=== PATIENT | male | born 1970 | race African-American/Black ===

== ENCOUNTER 2018-12-21 11:47 | Emergency (ER) | payer BC ==
--- NOTE | 2018-12-21 13:24 | ER ---
Nurse's Notes [facility] Name: Ric Webb Age: 48 yrs Sex: Male : 1970 Arrival Date: 12/21/2018 Time: 11:49 Bed 8 Private MD: Diagnosis: Influenza due to certain identified influenza viruses Presentation: 12/21 12:24 Presenting complaint: Patient states: cough, congestion, chest cold, chest pains adn body aches, couging up mucous, dark yellow. Transition of care: patient was not received from another setting of care. Onset of symptoms was December 17, 2018. Risk Assessment: Do you want to hurt yourself or someone else? Patient reports no desire to harm self or others. Initial Sepsis Screen: Does the patient meet any 2 criteria? No. Patient's initial sepsis screen is negative. Does the patient have a suspected source of infection? No. Patient's initial sepsis screen is negative. Care prior to arrival: None. 12:24 Method Of Arrival: Ambulatory 12:24 Acuity: LYNN 3 Triage Assessment: 12:25 Headache History: The patient has had previous headaches and this one is similar to previous episodes. General: Appears Behavior is. Pain: Pain currently is 4 out of 10 on a pain scale. Pain began gradually, Also complains of no other associated symptoms. Neuro: No deficits noted. Historical: - Allergies: 12:25 No Known Allergies; - PMHx: 12:25 None; - PSHx: 12:25 R shoulder; - Immunization history:: Adult Immunizations up to date, Flu vaccine is not up to date. - Social history:: Smoking status: Patient/guardian denies using tobacco, Patient/guardian denies using alcohol, street drugs. - Ebola Screening: : Patient negative for fever greater than or equal to 101.5 degrees Fahrenheit, and additional compatible Ebola Virus Disease symptoms Patient denies exposure to infectious person Patient denies travel to an Ebola-affected area in the 21 days before illness onset No symptoms or risks identified at this time. Screenin:00 Abuse screen: Denies threats or abuse. Denies injuries from another. Nutritional aj1 screening: No deficits noted. Tuberculosis screening: No symptoms or risk factors identified. 13:54 Fall Risk None identified. aj1 Assessment: 13:00 General: Appears in no apparent distress. comfortable, Behavior is calm, cooperative, aj1 appropriate for age. Pain: Complains of pain in face. Neuro: Level of Consciousness is awake, alert, obeys commands, Oriented to person, place, time, situation, Reports headache. Cardiovascular: Denies chest pain, Heart tones S1 S2 present Patient's skin is warm and dry. Respiratory: Reports cough that is productive, Airway is patent Respiratory effort is even, unlabored, Respiratory pattern is regular, symmetrical, Breath sounds are clear bilaterally. Denies shortness of breath. GI: No signs and/or symptoms were reported involving the gastrointestinal system. : No signs and/or symptoms were reported regarding the genitourinary system. EENT: Reports nasal congestion nasal discharge. Derm: No signs and/or symptoms reported regarding the dermatologic system. Skin is pink, warm \T\ dry. normal. Musculoskeletal: No signs and/or symptoms reported regarding the musculoskeletal system. Circulation, motion, and sensation intact. 13:54 Reassessment: Patient appears in no apparent distress at this time. No changes from aj1 previously documented assessment. Patient and/or family updated on plan of care and expected duration. Pain level reassessed. Patient is alert, oriented x 3, equal unlabored respirations, skin warm/dry/pink. Vital Signs: 12:25 BP 144 / 92; Pulse 65; Resp 18; Temp 99.1; Pulse Ox 99% on R/A; Weight 89.81 kg; Height 5 ft. 6 in. (167.64 cm); Pain 4/10; 13:47 BP 137 / 95; Pulse 52; Resp 18; Pulse Ox 97% on R/A; sv 12:25 Body Mass Index 31.96 (89.81 kg, 167.64 cm) ED Course: 11:49 Patient arrived in ED. as 12:18 EKG done, by ED staff, reviewed by Ming Smith MD. 3 12:25 Triage completed. 12:25 Arm band placed on left wrist. Patient placed in waiting room. ch 12:30 Shonna Diaz FNP-C is PHCP. kb 12:30 Ming Smith MD is Attending Physician. kb 12:48 Lala Landis RN is Primary Nurse. aj1 13:00 No provider procedures requiring assistance completed. aj1 13:00 Patient has correct armband on for positive identification. Bed in low position. Call aj1 light in reach. Side rails up X 1. 13:07 X-ray completed. Patient tolerated procedure well. sg4 13:09 Chest Pa And Lat (2 Views) XRAY In Process Unspecified. EDMS 13:54 Patient did not have IV access during this emergency room visit. aj1 Administered Medications: No medications were administered Outcome: 13:23 Discharge ordered by . daryl 13:58 Discharged to home ambulatory. aj1 13:58 Condition: good 13:58 Discharge instructions given to patient, Instructed on discharge instructions, follow up and referral plans. Demonstrated understanding of instructions, follow-up care. 13:58 Patient left the ED. aj1 Signatures: Dispatcher [employer] EDMS Shonna Diaz, FINISHING AREA OPERATOR-C FINISHING AREA OPERATOR-Yenni Hutchins, RN RN Lala Castro RN RN aj1 Sonya Chow RN RN sv Martinez, Amelia as Herrera, Iva [facility] Kimberly Meier sg4
--- NOTE | 2018-12-21 13:24 | EDPHYS ---
Physician Documentation [facility] Name: Ric Webb Age: 48 yrs Sex: Male : 1970 Arrival Date: 12/21/2018 Time: 11:49 Bed 8 Private MD: ED Physician Ming Smith HPI: 12/21 13:02 This 48 yrs old Black Male presents to ER via Ambulatory with complaints of Chest kb Congestion, Headache. 13:02 The patient or guardian reports cough, that is intermittent, described as mild, with kb productive sputum, flu symptoms, arthralgias, myalgias. Onset: The symptoms/episode began/occurred 5 day(s) ago. Severity of symptoms: At their worst the symptoms were mild, moderate, in the emergency department the symptoms are unchanged. Modifying factors: The symptoms are alleviated by nothing, the symptoms are aggravated by nothing. Associated signs and symptoms: Pertinent positives: rhinorrhea, sore throat, Pertinent negatives: chest pain, diarrhea, ear ache, fever, nausea, vomiting. The patient has not experienced similar symptoms in the past. The patient has not recently seen a physician. Historical: - Allergies: 12:25 No Known Allergies; ch - PMHx: 12:25 None; ch - PSHx: 12:25 R shoulder; ch - Immunization history:: Adult Immunizations up to date, Flu vaccine is not up to date. - Social history:: Smoking status: Patient/guardian denies using tobacco, Patient/guardian denies using alcohol, street drugs. - Ebola Screening: : Patient negative for fever greater than or equal to 101.5 degrees Fahrenheit, and additional compatible Ebola Virus Disease symptoms Patient denies exposure to infectious person Patient denies travel to an Ebola-affected area in the 21 days before illness onset No symptoms or risks identified at this time. ROS: 13:00 Neck: Negative for injury, pain, and swelling, Cardiovascular: Negative for chest pain, kb palpitations, and edema, Abdomen/GI: Negative for abdominal pain, nausea, vomiting, diarrhea, and constipation, Back: Negative for injury and pain, : Negative for injury, bleeding, discharge, and swelling, MS/Extremity: Negative for injury and deformity, Skin: Negative for injury, rash, and discoloration. 13:00 Constitutional: Positive for body aches, chills, fatigue, malaise, Negative for body aches, chills, poor PO intake, weight loss. 13:00 ENT: Positive for rhinorrhea, sinus congestion, sore throat. 13:00 Respiratory: Positive for cough, Negative for dyspnea on exertion, hemoptysis, orthopnea, pleurisy, shortness of breath, wheezing. 13:00 Neuro: Positive for headache. Exam: 13:00 Constitutional: This is a well developed, well nourished patient who is awake, alert, kb and in no acute distress. Head/Face: Normocephalic, atraumatic. ENT: Nares patent. No nasal discharge, no septal abnormalities noted. Tympanic membranes are normal and external auditory canals are clear. Oropharynx with no redness, swelling, or masses, exudates, or evidence of obstruction, uvula midline. Mucous membranes moist. Neck: Trachea midline, no thyromegaly or masses palpated, and no cervical lymphadenopathy. Supple, full range of motion without nuchal rigidity, or vertebral point tenderness. No Meningismus. Chest/axilla: Normal chest wall appearance and motion. Nontender with no deformity. No lesions are appreciated. Cardiovascular: Regular rate and rhythm with a normal S1 and S2. No gallops, murmurs, or rubs. Normal PMI, no JVD. No pulse deficits. Respiratory: Lungs have equal breath sounds bilaterally, clear to auscultation and percussion. No rales, rhonchi or wheezes noted. No increased work of breathing, no retractions or nasal flaring. Abdomen/GI: Soft, non-tender, with normal bowel sounds. No distension or tympany. No guarding or rebound. No evidence of tenderness throughout. Skin: Warm, dry with normal turgor. Normal color with no rashes, no lesions, and no evidence of cellulitis. MS/ Extremity: Pulses equal, no cyanosis. Neurovascular intact. Full, normal range of motion. Neuro: Awake and alert, GCS 15, oriented to person, place, time, and situation. Cranial nerves II-XII grossly intact. Motor strength 5/5 in all extremities. Sensory grossly intact. Cerebellar exam normal. Normal gait. Vital Signs: 12:25 BP 144 / 92; Pulse 65; Resp 18; Temp 99.1; Pulse Ox 99% on R/A; Weight 89.81 kg; Height ch 5 ft. 6 in. (167.64 cm); Pain 4/10; 13:47 BP 137 / 95; Pulse 52; Resp 18; Pulse Ox 97% on R/A; sv 12:25 Body Mass Index 31.96 (89.81 kg, 167.64 cm) MDM: 12:30 Patient medically screened. kb 13:00 Data reviewed: vital signs, nurses notes. Data interpreted: Pulse oximetry: on room air kb is 99 %. Interpretation: normal. 13:23 Counseling: I had a detailed discussion with the patient and/or guardian regarding: the kb historical points, exam findings, and any diagnostic results supporting the discharge/admit diagnosis, lab results, radiology results, the need for outpatient follow up, a family practitioner, to return to the emergency department if symptoms worsen or persist or if there are any questions or concerns that arise at home. 12/21 12:26 Order name: Flu; Complete Time: 12:44 12/21 12:26 Order name: Strep; Complete Time: 12:44 12/21 12:33 Order name: Chest Pa And Lat (2 Views) XRAY; Complete Time: 13:45 kb 12/21 12:41 Order name: Throat Culture EDMS Administered Medications: No medications were administered Disposition: 12/21/18 13:23 Discharged to Home. Impression: Influenza due to certain identified influenza viruses. - Condition is Stable. - Discharge Instructions: Influenza, Adult, [id number]. - Medication Reconciliation Form, Thank You Letter, Antibiotic Education, Prescription Opioid Use form. - Follow up: Emergency Department; When: As needed; Reason: Worsening of condition. Follow up: Private Physician; When: 2 - 3 days; Reason: Recheck today's complaints, Continuance of care, Re-evaluation by your physician. Addendum: 12/23/2018 09:21 Co-signature as Attending Physician, Ming Smith MD I agree with the assessment and c ring plan of care. Signatures: Dispatcher [employer] EDMS Shonna Diaz FNP-C FNP-Yenni Hutchins, RN Lala Workman ch, RN RN aj1 Anderson, Corey, MD MD cha Corrections: (The following items were deleted from the chart) 12/21 13:58 13:23 12/21/2018 13:23 Discharged to Home. Impression: Influenza due to certain aj1 identified influenza viruses. Condition is Stable. Forms are Medication Reconciliation Form, Thank You Letter, Antibiotic Education, Prescription Opioid Use. Follow up: Emergency Department; When: As needed; Reason: Worsening of condition. Follow up: Private Physician; When: 2 - 3 days; Reason: Recheck today's complaints, Continuance of care, Re-evaluation by your physician. kb
--- NOTE | 2018-12-21 13:42 | RAD REPORT ---
EXAM DESCRIPTION: RAD - Chest Pa And Lat (2 Views) - 12/21/2018 1:10 pm CLINICAL HISTORY: Cough and congestion COMPARISON: None. TECHNIQUE: PA and lateral views of the chest were obtained. FINDINGS: The lungs are clear. Heart size is normal and central vasculature is within normal limit s. No pleural effusion or pneumothorax seen. No acute bony finding noted. No aortic abnormality. IMPRESSION: No acute cardiopulmonary process.
--- NOTE | 2018-12-22 21:46 | EKG ---
Test Date: 2018-12-21 Test Time: 12:13:35 Digital Performance Analyst: JOSEA LFREDO MEASUREMENT RESULTS: Intervals: Rate: 68 WA: 164 QRSD: 86 QT: 388 QTc: 412 Herrick: P: 51 WA: 164 QRS: 56 T: 3 INTERPRETIVE STATEMENTS: Normal sinus rhythm Nonspecific T wave abnormality Abnormal ECG No previous ECG available for comparison Electronically Signed On 12-22-18 21:45:40 CDT by Bebeto Murray
== END 2018-12-21 13:58 | disposition home or self-care (01) ==
LOC: ER 11:47
DX: J10.1 Influenza due to other identified influenza virus with other respiratory manifestations (principal)
CPT/HCPCS: 71046; 87070; 87081; 87804; 93005; 99283